=== PATIENT | female | born 1990 | race Caucasian/White ===

== ENCOUNTER 2016-08-10 22:42 | Emergency (ER) | payer SELFPAY ==
[~2016-08-10] VITALS: Ht 167.6 cm; Wt 97.0 kg
[2016-08-10 22:45] VITALS: BP 120/73
[2016-08-10] MEDS ORDERED: DEXAMETHASONE 4 MG TABLET ONE (23:27)
[2016-08-10] MEDS ORDERED: DEXAMETHASONE 4 MG TABLET PO ONE (23:30)
== END 2016-08-10 23:49 | disposition home or self-care (01) ==
LOC: ED 23:43
DX: J02.9 Acute pharyngitis, unspecified (principal); E87.6 Hypokalemia; I10 Essential (primary) hypertension; E11.9 Type 2 diabetes mellitus without complications
CPT/HCPCS: 99283

== ENCOUNTER 2016-11-09 19:55 | Emergency (ER) | payer OTHER ==
[~2016-11-09] VITALS: Ht 167.6 cm; Wt 96.7 kg
[2016-11-09 20:03] VITALS: BP 134/74
[2016-11-09] MEDS ORDERED: KETOROLAC 30 MG/1 ML IM ONE (20:30)
[2016-11-09] MEDS ORDERED: KETOROLAC 30 MG/1 ML ONE (20:43)
== END 2016-11-09 22:24 | disposition home or self-care (01) ==
LOC: ED 21:25
DX: S39.012A Strain of muscle, fascia and tendon of lower back, initial encounter (principal); S16.1XXA Strain of muscle, fascia and tendon at neck level, initial encounter; E11.9 Type 2 diabetes mellitus without complications; I10 Essential (primary) hypertension; F17.210 Nicotine dependence, cigarettes, uncomplicated; V43.52XA Car driver injured in collision with other type car in traffic accident, initial encounter; Y93.89 Activity, other specified; Y92.488 Other paved roadways as the place of occurrence of the external cause; Y99.8 Other external cause status
CPT/HCPCS: 72020; 72050; 72110; 96372; 99284; J1885

== ENCOUNTER 2017-02-07 18:46 | Emergency (ER) | payer OTHER ==
[~2017-02-07] VITALS: Ht 167.6 cm; Wt 97.5 kg
[2017-02-07 20:56] VITALS: BP 111/72
== END 2017-02-07 21:26 | disposition home or self-care (01) ==
LOC: ED 21:20
DX: N63.10 Unspecified lump in the right breast, unspecified quadrant (principal); E87.6 Hypokalemia; I10 Essential (primary) hypertension; E11.9 Type 2 diabetes mellitus without complications
CPT/HCPCS: 99281

== ENCOUNTER 2017-03-21 12:41 | Emergency (ER) | payer OTHER ==
[~2017-03-21] VITALS: Ht 167.6 cm; Wt 95.0 kg
[2017-03-21 12:53] VITALS: BP 104/66
== END 2017-03-21 15:06 | disposition home or self-care (01) ==
LOC: ED 15:00
DX: S39.012A Strain of muscle, fascia and tendon of lower back, initial encounter (principal); I10 Essential (primary) hypertension; E11.9 Type 2 diabetes mellitus without complications; V43.52XA Car driver injured in collision with other type car in traffic accident, initial encounter; Y93.89 Activity, other specified; Y92.481 Parking lot as the place of occurrence of the external cause; Y99.8 Other external cause status
CPT/HCPCS: 72110; 99284

== ENCOUNTER 2017-10-31 18:46 | Emergency (ER) | payer SELFPAY ==
[~2017-10-31] VITALS: Ht 167.6 cm; Wt 94.7 kg
[2017-10-31 18:54] VITALS: BP 143/97
== END 2017-10-31 19:17 | disposition home or self-care (01) ==
LOC: ED 18:55
DX: K08.89 Other specified disorders of teeth and supporting structures (principal); E11.9 Type 2 diabetes mellitus without complications; I10 Essential (primary) hypertension
CPT/HCPCS: 99283

== ENCOUNTER 2017-12-13 01:23 | Emergency (ER) | payer OTHER ==
[~2017-12-13] VITALS: Ht 167.6 cm; Wt 90.0 kg
[2017-12-13] MEDS ORDERED: IBUPROFEN 200 MG TABLET ONE (01:53)
[2017-12-13] MEDS ORDERED: IBUPROFEN 200 MG TABLET PO ONE (02:00)
[2017-12-13 02:47] VITALS: BP 122/74
== END 2017-12-13 02:49 | disposition home or self-care (01) ==
LOC: ED 02:40
DX: R07.89 Other chest pain (principal); E11.9 Type 2 diabetes mellitus without complications; I10 Essential (primary) hypertension
CPT/HCPCS: 71046; 93005; 99284

== ENCOUNTER 2017-12-30 15:09 | Emergency (ER) | payer OTHER ==
[~2017-12-30] VITALS: Ht 157.5 cm; Wt 93.5 kg
[2017-12-30] MEDS ORDERED: ASPIRIN 81 MG TABLET CHEW PO ONE (16:00)
[2017-12-30] MEDS ORDERED: ASPIRIN 81 MG TABLET CHEW ONE (16:07)
[2017-12-30] MEDS ORDERED: KETOROLAC 30 MG/1 ML IM ONE (16:30)
[2017-12-30 16:41] LABS: BASOPHILS # (AUTO) 0.04 x10^3/uL (0-0.1); BASOPHILS % (AUTO) 1 % (0-1); EOSINOPHILS # (AUTO) 0.06 x10^3/uL (0-0.4); EOSINOPHILS % (AUTO) 1 % (1-7); LYMPHOCYTES % (AUTO) 35 % (22-44); MD NO; MEAN CORPUSCULAR HEMOGLOBIN 30.8 pg (27.0-34.8); MEAN CORPUSCULAR HGB CONC 34.3 g/dL (32.4-35.8); MEAN CORPUSCULAR VOLUME 89.8 fL (80-100); MEAN PLATELET VOLUME 9.8 fL (7.4-10.4); MONOCYTES # (AUTO) 0.29 x10^3/uL (0.2-0.8); MONOCYTES % (AUTO) 4 % (2-9); NEUTROPHILS % (AUTO) 60 % (42-75); PLATELET COUNT 206 x10^3/uL (130-400); RED BLOOD COUNT 5.03 x10^6/uL (3.82-5.3); RED CELL DISTRIBUTION WIDTH 12.8 % (9.6-15.2)
[2017-12-30] MEDS ORDERED: KETOROLAC 30 MG/1 ML ONE (16:48)
[2017-12-30 16:49] LABS: ALBUMIN 4.1 g/dL (3.4-5.0); ANION GAP 7 mmol/L (5-15); CALCIUM 8.9 mg/dL (8.5-10.1); CHLORIDE 106 mmol/L (98-107)
[2017-12-30 16:54] LABS: ALANINE AMINOTRANSFERASE 137 U/L (12-78); ALKALINE PHOSPHATASE 73 U/L (45-117); BILIRUBIN,TOTAL 0.5 mg/dL (0.2-1.0); CREATININE 0.67 mg/dL (0.55-1.02); TOTAL PROTEIN 8.6 g/dL (6.4-8.2); TROPONIN I < 0.015 ng/mL (0.000-0.045)
[2017-12-30 17:57] VITALS: BP 112/58
== END 2017-12-30 18:12 | disposition home or self-care (01) ==
LOC: ED 18:00
DX: R07.89 Other chest pain (principal); R94.5 Abnormal results of liver function studies; I10 Essential (primary) hypertension; E11.9 Type 2 diabetes mellitus without complications; F17.200 Nicotine dependence, unspecified, uncomplicated
CPT/HCPCS: 36415; 71046; 76700; 80053; 83690; 84484; 84703; 85025; 85379; 93005; 96372; 99285; J1885

== ENCOUNTER 2017-12-31 20:13 | Emergency (ER) | payer OTHER ==
[~2017-12-31] VITALS: Ht 167.6 cm; Wt 95.5 kg
[2017-12-31 20:16] VITALS: BP 110/71
[2017-12-31] MEDS ORDERED: HYDROcodone/APAP 5/325 TABLET ONE (20:45)
[2017-12-31] MEDS ORDERED: HYDROcodone/APAP 5/325 TABLET PO ONE (21:00)
== END 2017-12-31 21:26 | disposition home or self-care (01) ==
LOC: ED 20:56
DX: S93.621A Sprain of tarsometatarsal ligament of right foot, initial encounter (principal); S93.611A Sprain of tarsal ligament of right foot, initial encounter; W01.0XXA Fall on same level from slipping, tripping and stumbling without subsequent striking against object, initial encounter; Y93.89 Activity, other specified; Y92.009 Unspecified place in unspecified non-institutional (private) residence as the place of occurrence of the external cause; Y99.8 Other external cause status
CPT/HCPCS: 99284

== ENCOUNTER 2018-02-11 23:02 | Emergency (ER) | payer SELFPAY ==
[~2018-02-11] VITALS: Ht 167.6 cm; Wt 92.4 kg
[2018-02-11 23:09] VITALS: BP 109/69
== END 2018-02-12 00:22 | disposition home or self-care (01) ==
LOC: ED 23:58
DX: J02.0 Streptococcal pharyngitis (principal); I10 Essential (primary) hypertension; E11.9 Type 2 diabetes mellitus without complications; Z86.19 Personal history of other infectious and parasitic diseases
CPT/HCPCS: 99283

== ENCOUNTER 2019-01-01 21:00 | Emergency (ER) | payer SELFPAY ==
[~2019-01-01] VITALS: Ht 167.6 cm; Wt 90.2 kg
[2019-01-01 21:07] VITALS: BP 124/70
[2019-01-01 22:00] LABS: HCG UR SG 1.039 (1.003-1.030); MICROSCOPIC AUTO
[2019-01-01 22:16] LABS: CULTURE INDICATED? NO
== END 2019-01-01 23:37 | disposition left against medical advice (07) ==
LOC: ED 23:31
DX: J00 Acute nasopharyngitis [common cold] (principal); R10.9 Unspecified abdominal pain; E11.9 Type 2 diabetes mellitus without complications; I10 Essential (primary) hypertension
CPT/HCPCS: 71045; 81001; 81025; 99284

== ENCOUNTER 2019-01-27 18:29 | Emergency (ER) | payer SELFPAY ==
[~2019-01-27] VITALS: Ht 167.6 cm; Wt 92.8 kg
[2019-01-27 18:30] VITALS: BP 126/64
== END 2019-01-27 19:51 | disposition home or self-care (01) ==
LOC: ED 18:57
DX: N64.4 Mastodynia (principal); F17.210 Nicotine dependence, cigarettes, uncomplicated; E11.9 Type 2 diabetes mellitus without complications; I10 Essential (primary) hypertension
CPT/HCPCS: 99281

== ENCOUNTER 2019-01-28 18:47 | Emergency (ER) ==
[~2019-01-28] VITALS: Ht 167.6 cm; Wt 92.7 kg
[2019-01-28 18:53] VITALS: BP 127/76
--- NOTE | 2019-01-28 19:01 | NUR ---
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
--- NOTE | 2019-01-28 19:10 | NUR ---
PT C/O OVERTON, STATES SHE CHECKED HER BS (NOT DIABETIC BUT FAMILY HX OF DIABETES) AND IT WAS 392. PT DENIES N/V OR ANY OTHER SYMPTOMS
[2019-01-28] MEDS ORDERED: KETOROLAC 30 MG/1 ML ONE (19:26)
[2019-01-28] MEDS ORDERED: DIPHENHYDRAMINE 50 MG/ML, 1ML ONE (19:26)
[2019-01-28] MEDS ORDERED: METOCLOPRAMIDE 5 MG/ML, 2ML ONE (19:26)
[2019-01-28] MEDS ORDERED: SODIUM CHLORIDE FLUSH 10ML SYR IVF ONE (19:30)
[2019-01-28] MEDS ORDERED: KETOROLAC 30 MG/1 ML IVPush ONE (19:30)
[2019-01-28] MEDS ORDERED: METOCLOPRAMIDE 5 MG/ML, 2ML IVPush ONE (19:30)
[2019-01-28] MEDS ORDERED: SODIUM CHLORIDE 0.9% 1,000ML IVBOLUS ONE (19:30)
[2019-01-28] MEDS ORDERED: DIPHENHYDRAMINE 50 MG/ML, 1ML IVPush ONE (19:30)
[2019-01-28 19:32] LABS: BASOPHILS # (AUTO) 0.04 x10^3/uL (0-0.1); BASOPHILS % (AUTO) 1 % (0-1); EOSINOPHILS # (AUTO) 0.06 x10^3/uL (0-0.4); EOSINOPHILS % (AUTO) 1 % (1-7); LYMPHOCYTES # (AUTO) 2.56 x10^3/uL (1-3.4); LYMPHOCYTES % (AUTO) 38 % (22-44); MD NO; MEAN CORPUSCULAR HEMOGLOBIN 31.3 pg (27.0-34.8); MEAN CORPUSCULAR HGB CONC 35.1 g/dL (32.4-35.8); MEAN CORPUSCULAR VOLUME 89.3 fL (80-100); MEAN PLATELET VOLUME 9.4 fL (7.4-10.4); MONOCYTES # (AUTO) 0.35 x10^3/uL (0.2-0.8); MONOCYTES % (AUTO) 5 % (2-9); NEUTROPHILS # (AUTO) 3.81 x10^3/uL (1.8-6.8); NEUTROPHILS % (AUTO) 56 % (42-75); PLATELET COUNT 189 x10^3/uL (130-400); RED BLOOD COUNT 5.07 x10^6/uL (3.82-5.3); RED CELL DISTRIBUTION WIDTH 13.4 % (9.6-15.2)
[2019-01-28 19:48] LABS: HCG UR SG 1.042 (1.003-1.030); MICROSCOPIC NOT IND
[2019-01-28 19:50] LABS: CULTURE INDICATED? NO
[2019-01-28 20:09] LABS: ALBUMIN 4.1 g/dL (3.4-5.0); ANION GAP 5 mmol/L (5-15); CALCIUM 9.1 mg/dL (8.5-10.1); CHLORIDE 106 mmol/L (98-107); CREATININE 0.72 mg/dL (0.55-1.02)
== END 2019-01-28 20:51 | disposition home or self-care (01) ==
LOC: ED 20:34
DX: G43.C0 Periodic headache syndromes in child or adult, not intractable (principal); E11.65 Type 2 diabetes mellitus with hyperglycemia; I10 Essential (primary) hypertension
CPT/HCPCS: 36415; 71045; 80048; 81003; 81025; 82040; 82962; 85025; 96374; 96375; 99284; J1200; J1885; J2765; J7030

== ENCOUNTER 2019-02-01 20:00 | Emergency (ER) | payer SELFPAY ==
[~2019-02-01] VITALS: Ht 167.6 cm; Wt 91.4 kg
[2019-02-01] MEDS ORDERED: METF500T17 PO (20:24)
--- NOTE | 2019-02-01 20:25 | NUR ---
THIS IS A 28 YO FEMALE COMING IN FOR INTERMITTENT CHEST PAIN LOCATED ON LEFT SIDE OF CHEST ABOVE BREAST STARTING 4 DAYS AGO. PATIENT STATES IT IS A SHARP PAIN 10/10, THAT IS INTERMITTENT THROUGHOUT THE DAY FOR THE PAST 4 DAYS THAT RADIATES TO BACK, DOWN LEFT ARM, AND UP LEFT SIDE OF NECK AND JAW. PATIENT STATES "WHEN THE CHEST PAIN STARTS I GET A LITTLE ANXIOUS AND I FEEL SHORT OF BREATH". PATIENT DENIES CARDIAC MEDICAL HX, DENIES TRAUMA OR STRENUOUS ACTIVITY. PATIENT WAS DIAGNOSED WITH DIABETES 1 WEEK AGO AND STARTED ON METFORMIN. PATIENT IS A&OX4, NO ACUTE DISTRESS, VSS AT THIS TIME. CALL LIGHT IN REACH, PLACED ON RECEP, NSR NOTED, CONTINUOUS SPO2 AT 99%, CYCLE BP Q1HR. CALL LIGHT IN REACH, DENIES NEEDS AT THIS TIME.
[2019-02-01 20:29] VITALS: BP 117/57
--- NOTE | 2019-02-01 20:46 | NUR ---
BLOOD GLUCOSE TAKEN, 154. NOTIFIED.
--- NOTE | 2019-02-01 21:27 | NUR ---
PATIENT AMBULATED TO RESTROOM WITH STEADY GAIT.
--- NOTE | 2019-02-01 21:40 | NUR ---
Patient/Caregiver given discharge instructions and they have confirmed that they understand the instructions. Patient ambulatory with steady gait.
== END 2019-02-01 21:53 | disposition home or self-care (01) ==
LOC: ED 21:28
DX: R07.89 Other chest pain (principal); I10 Essential (primary) hypertension; E11.9 Type 2 diabetes mellitus without complications; Z87.891 Personal history of nicotine dependence
CPT/HCPCS: 71046; 82962; 93005; 99283

== ENCOUNTER 2019-03-21 21:23 | Emergency (ER) | payer SELFPAY ==
[~2019-03-21] VITALS: Ht 167.6 cm; Wt 90.0 kg
[~2019-03-21 21:23] MED LIST: METF500T17 PO
[2019-03-21 21:29] VITALS: BP 127/74
--- NOTE | 2019-03-21 21:45 | NUR ---
[employer]: CHRIS SENT FROM [facility]
[2019-03-21 22:01] LABS: MICROSCOPIC AUTO
[2019-03-21 22:09] LABS: CULTURE INDICATED? YES
[2019-03-21 22:13] LABS: BASOPHILS # (AUTO) 0.02 x10^3/uL (0-0.1); BASOPHILS % (AUTO) 0 % (0-1); EOSINOPHILS # (AUTO) 0.02 x10^3/uL (0-0.4); EOSINOPHILS % (AUTO) 0 % (1-7); LYMPHOCYTES # (AUTO) 1.95 x10^3/uL (1-3.4); LYMPHOCYTES % (AUTO) 27 % (22-44); MD NO; MEAN CORPUSCULAR HEMOGLOBIN 30.1 pg (27.0-34.8); MEAN CORPUSCULAR HGB CONC 34.1 g/dL (32.4-35.8); MEAN CORPUSCULAR VOLUME 88.4 fL (80-100); MEAN PLATELET VOLUME 8.6 fL (7.4-10.4); MONOCYTES % (AUTO) 4 % (2-9); NEUTROPHILS # (AUTO) 4.84 x10^3/uL (1.8-6.8); NEUTROPHILS % (AUTO) 68 % (42-75); PLATELET COUNT 194 x10^3/uL (130-400); RED BLOOD COUNT 4.64 x10^6/uL (3.82-5.3); RED CELL DISTRIBUTION WIDTH 13.3 % (9.6-15.2)
[2019-03-21 22:22] LABS: ALBUMIN 3.7 g/dL (3.4-5.0); ANION GAP 7 mmol/L (5-15); CALCIUM 9.3 mg/dL (8.5-10.1); CHLORIDE 106 mmol/L (98-107)
[2019-03-21 22:39] LABS: CREATININE 0.46 mg/dL (0.55-1.02)
--- NOTE | 2019-03-22 01:04 | NUR ---
NO ANSWER TO ROOM PATIENT.
--- NOTE | 2019-03-22 01:15 | NUR ---
NO ANSWER WHEN CALLED FOR ROOM
--- NOTE | 2019-03-22 01:32 | NUR ---
NO LONGER IN LOBBY. ASSUMED TO HAVE LEFT
== END 2019-03-22 01:33 | disposition left against medical advice (07) ==
LOC: ED 03-22 01:27
DX: O20.9 Hemorrhage in early pregnancy, unspecified (principal); R10.9 Unspecified abdominal pain; Z3A.11 11 weeks gestation of pregnancy
CPT/HCPCS: 36415; 76801; 80048; 81001; 82040; 84702; 85025; 86901; 87086; 99284

== ENCOUNTER 2019-05-04 19:38 | Emergency (ER) | payer SELFPAY ==
[~2019-05-04] VITALS: Ht 167.6 cm; Wt 89.2 kg
[2019-05-04 19:51] VITALS: BP 107/54
== END 2019-05-04 21:48 | disposition home or self-care (01) ==
LOC: ED 20:44
DX: J02.0 Streptococcal pharyngitis (principal); J02.8 Acute pharyngitis due to other specified organisms; B97.89 Other viral agents as the cause of diseases classified elsewhere
CPT/HCPCS: 82962; 99283

== ENCOUNTER 2019-08-06 10:55 | Emergency (ER) | payer SELFPAY ==
[~2019-08-06] VITALS: Ht 167.6 cm; Wt 87.5 kg
[2019-08-06 12:31] VITALS: BP 120/54
== END 2019-08-06 12:33 ==
LOC: ED 11:57
DX: J02.9 Acute pharyngitis, unspecified (principal); Z20.828 Contact with and (suspected) exposure to other viral communicable diseases; R05 Cough; R07.89 Other chest pain; R00.0 Tachycardia, unspecified; I10 Essential (primary) hypertension; E11.9 Type 2 diabetes mellitus without complications
CPT/HCPCS: 87081; 87880; 93005; 99284; U0001

== ENCOUNTER 2019-10-14 19:58 | Emergency (ER) | payer SELFPAY ==
[~2019-10-14] VITALS: Ht 167.6 cm; Wt 79.2 kg
[2019-10-14 20:00] VITALS: BP 111/62
--- NOTE | 2019-10-14 20:37 | NUR ---
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
--- NOTE | 2019-10-14 21:30 | NUR ---
TASK RN: DC EDUCATION PROVIDED, PT DEMONSTRATES UNDERSTANDING. PT AMBULATED STEADILY TO DC WITH RN
== END 2019-10-14 21:32 | disposition home or self-care (01) ==
LOC: ED 20:28
DX: N61.0 Mastitis without abscess (principal); R21 Rash and other nonspecific skin eruption; R07.9 Chest pain, unspecified; E11.9 Type 2 diabetes mellitus without complications; I10 Essential (primary) hypertension
CPT/HCPCS: 99283

== ENCOUNTER 2020-03-05 09:29 | Emergency (ER) | payer SELFPAY ==
[~2020-03-05] VITALS: Ht 167.6 cm; Wt 86.6 kg
[2020-03-05] MEDS ORDERED: METF500T17 PO (09:39)
[2020-03-05] MEDS ORDERED: FLUORESCEIN OPHTHALMIC 1 MG STRIP ONE (09:53)
[2020-03-05] MEDS ORDERED: PROPARACAINE OPHTH 0.5%, 15ML ONE (09:54)
[2020-03-05] MEDS ORDERED: ONDANSETRON ODT 4 MG ONE (09:58)
[2020-03-05] MEDS ORDERED: KETOROLAC 30 MG/1 ML ONE (09:58)
[2020-03-05] MEDS ORDERED: ONDANSETRON ODT 4 MG PO ONE (10:30)
[2020-03-05] MEDS ORDERED: KETOROLAC 30 MG/1 ML IM ONE (10:30)
[2020-03-05 11:14] VITALS: BP 122/61
== END 2020-03-05 11:16 | disposition home or self-care (01) ==
LOC: ED 10:27
DX: U07.1 COVID-19 (principal); J06.9 Acute upper respiratory infection, unspecified; B30.9 Viral conjunctivitis, unspecified; E11.9 Type 2 diabetes mellitus without complications; I10 Essential (primary) hypertension; Z87.891 Personal history of nicotine dependence
CPT/HCPCS: 71045; 87635; 93005; 96372; 99285; J1885; Q0162

== ENCOUNTER 2020-10-08 20:38 | Emergency (ER) | payer SELFPAY ==
[~2020-10-08] VITALS: Ht 167.6 cm; Wt 95.9 kg
[2020-10-08 21:15] LABS: HCG UR SG 1.032 (1.003-1.030); MICROSCOPIC AUTO
[2020-10-08 21:54] VITALS: BP 118/68
--- NOTE | 2020-10-08 22:33 | NUR ---
PT TO ROOM AT THIS TIME, ERP TO BEDSIDE
--- NOTE | 2020-10-08 23:07 | NUR ---
Patient/Caregiver given discharge instructions and they have confirmed that they understand the instructions. Patient ambulatory with steady gait. NAD, all questions answered appropriately, denies additional needs at this time. No personal belongings left in room after discharge.
== END 2020-10-08 23:17 | disposition home or self-care (01) ==
LOC: ED 22:46
DX: N30.01 Acute cystitis with hematuria (principal); I10 Essential (primary) hypertension; E11.9 Type 2 diabetes mellitus without complications
CPT/HCPCS: 81001; 81025; 99283